=== PATIENT | female | born 1970 | race Caucasian/White ===

== ENCOUNTER 2020-02-06 14:38 | Emergency (ER) | payer OTHER, SELFPAY ==
--- NOTE | ~2020-02-06 | XR_ITS ---
EXAMINATION: XR abdomen/kub 1V EXAM DATE: 02/06/2020 16:10 INDICATION: Lt Flank Pain And Pain Under Lt Breast . TECHNIQUE: Frontal projection(s) of the abdomen for interpretation. There is no prior study for shanna kumari. FINDINGS: There is expected amount of colonic stool and gas. No small bowel dilation, nonobstructiv e bowel gas pattern. There are no suspicious calcifications identified. There is no organomegaly suspected. The bones are unremarkable. IMPRESSION: Unremarkable abdomen x-ray exam. Reviewed, dictated and finalized at location A. NESS TAXES SPECIALIST
--- NOTE | ~2020-02-06 | XR_ITS ---
EXAMINATION: XR chest 2V EXAM DATE: 02/06/2020 16:11 INDICATION: Left-sided chest pain. High blood pressure. Asthma. TECHNIQUE: Frontal and lateral projections of the chest obtained and reviewed. Comparison is made to prior examination from 12/06/2017, 04/16/2017. FINDINGS: Development of small amount of lingular subsegmental atelectasis or infection. The lungs ar e otherwise clear. There are no pleural effusions. The cardiomediastinal silhouette is within heather l limits. There is no pneumothorax suspected. The bones and soft tissues are unremarkable. IMPRESSION: Subsegmental lingular opacity, probably atelectasis or infection. Reviewed, dictated and finalized at location A. H REPAIRER APPRENTICE
[2020-02-06 14:43] VITALS: BP 174/89; PULSE 87; RESP 17; TEMP 36.6; O2SAT 100
--- NOTE | 2020-02-06 15:39 | ED.GENADULT ---
HPI - General Adult General Chief complaint: Unspecified Stated complaint: dizziness Time Seen by Provider: 02/06/20 14:46 History of Present Illness HPI narrative: 49 yo female w/ h/o COPD presents to the ED for left chest wall pain. She reports that this has been present for several days. She was just discharged from [place] after an admission for this problem. She says they initially thought it was a heart attack, but on discharge told her it was a muscle spasm. She was discharged with flexeril, which she says is not helping. She has no idea what testing was done. Related Data Allergies Allergy/AdvReac Type Severity Reaction Status Date / Time No Known Allergies Allergy Verified 02/06/20 14:47 Review of Systems Review of Systems: All systems reviewed & are unremarkable except as noted in HPI and below Constitutional: Constitutional: Denies chills and Denies fever(s) ENT: Reports dizziness Cardiovascular: Cardiovascular: Reports chest pain Respiratory: Respiratory: Reports dyspnea Neurologic: Reports dizziness and Reports numbness (feet) PENDING SALE TO [facility] Past Medical History Medical History COPD (chronic obstructive pulmonary disease) Social History Social History (Updated 02/06/20 @ 16:00 by Charles Avila MD) Smoking status: Current every day smoker Exam Const: General: no acute distress Nutritional Appearance: obese Orientation/consciousness: patient oriented x3 HENMT: Head: normal to inspection Chest: Chest palpation & inspection: tenderness rib (left rib) Resp: Effort & Inspection: normal respiratory effort Auscultation: clear to auscultation bilaterally Cardio: Rate: regular rate Rhythm: regular rhythm GI: GI Palp: No abdominal tenderness Skin: General skin exam: normal color Neuro: General: patient oriented x3 Cranial nerves: Yes CN's II-XII intact bilaterally Speech: normal speech Gait exam (Neuro): Normal gait present Extrem: General: normal to inspection and no pedal edema Course Vital Signs Vital signs: Vital Signs Temperature 36.6 C 02/06/20 14:43 Pulse Rate 87 02/06/20 14:43 Respiratory Rate 17 02/06/20 14:43 Blood Pressure 174/89 H 02/06/20 14:43 Pulse Oximetry 100 02/06/20 14:43 Temperature 36.6 C 02/06/20 14:43 Pulse Rate 87 02/06/20 14:43 Respiratory Rate 17 02/06/20 14:43 Blood Pressure 174/89 H 02/06/20 14:43 Pulse Oximetry 100 02/06/20 14:43 Medical Decision Making MDM Narrative Medical decision making narrative: Chest x-ray shows lingular infiltrate. I feel that it is more likely atelectasis than pneumonia, but cannot completely rule this out. I will start her on a short course of azithromycin. KUB shows significant colonic stool. I will also start her on stool softeners. I feel that this is actually the more likely cause of her symptoms. Medical Records Medical records reviewed: Yes I reviewed the patient's medical records. Vital Signs Vital Signs: Vital Signs Temperature 36.6 C 02/06/20 14:43 Pulse Rate 87 02/06/20 14:43 Respiratory Rate 17 02/06/20 14:43 Blood Pressure 174/89 H 02/06/20 14:43 Pulse Oximetry 100 02/06/20 14:43 Temperature 36.6 C 02/06/20 14:43 Pulse Rate 87 02/06/20 14:43 Respiratory Rate 17 02/06/20 14:43 Blood Pressure 174/89 H 02/06/20 14:43 Pulse Oximetry 100 02/06/20 14:43 Lab Data Lab results reviewed: Yes I reviewed the patient's lab results. Imaging Data Radiologist's impression: ITS Impressions Chest X-Ray 02/06/20 16:12 IMPRESSION: Subsegmental lingular opacity, probably atelectasis or infection. Abdomen X-Ray 02/06/20 16:13 IMPRESSION: Unremarkable abdomen x-ray exam. Discharge Plan Discharge Clinical Impression: Lingular pneumonia Constipation Qualifiers: Constipation type: unspecified constipation type Qualified Code(s): K59.00 - Constipation, unspecifi
[2020-02-06 18:28] VITALS: BP 151/99; PULSE 83; RESP 14; O2SAT 96
--- NOTE | 2020-02-07 00:46 | PC.NURSE ---
Late entry for 02.06.20 at 1820 Pt. moving all extremities, changing positions normally, normal gait and posture.
== END 2020-02-06 18:20 | disposition home or self-care (01) ==
PROVIDERS: Emergency Provider Emergency Medicine
DX: J18.9 Pneumonia, unspecified organism (principal); K59.00 Constipation, unspecified; J44.9 Chronic obstructive pulmonary disease, unspecified; F17.200 Nicotine dependence, unspecified, uncomplicated
CPT/HCPCS: 71046; 74018; 99283